=== PATIENT | female | born 1985 | race Caucasian/White ===

== ENCOUNTER 2016-10-04 21:12 | Inpatient (IN) | payer BC ==
[~2016-10-04] VITALS: Ht 182.9 cm; Wt 95.5 kg
[2016-10-04] VITALS (13 sets, daily range): BP systolic 93–127; BP diastolic 53–80; PULSE 72–96; TEMP 97.9
[2016-10-04] MEDS ORDERED: PRILOTC (21:35)
[2016-10-04] MEDS ORDERED: PRENATAL1 TA7 PO (21:36)
[2016-10-04] MEDS ORDERED: MOTRIN 800800 MG/TAB PO (21:50)
[2016-10-04] MEDS ORDERED: PERCOCET 325 MG1 TA2 PO (21:50)
[2016-10-04 22:02] LABS: BASO # 0.1 (0.0-0.2); BASO % 0.4 % (0.0-2.0); EOS % 0.2 % (0-4.0); GRAN # 10.5 (1.4-6.5); GRAN % 78.7 % (42.2-75.2); LYMPH # 1.9 (1.2-3.4); MEAN CELL VOLUME 86 fl (80.0-100.0); MEAN CORPUSCULAR HGB CONC 34 g/dl (33.0-37.0); MEAN PLATELET VOLUME 9.6 fl (7.4-10.4); MONO # 0.8 (0.1-0.6); MONO % 6.2 % (1.7-9.3); PLATELET COUNT 165 K/mm3 (130-400); RED BLOOD COUNT 3.91 M/mm3 (4.10-5.30); REDCELL DISTRIBUTION WIDTH-CV 13.7 % (11.5-14.5); WHITE BLOOD COUNT 13.3 K/mm3 (4.8-10.8)
[2016-10-04 22:06] LABS: HEMATOCRIT 33.7 % (37.0-47.0); HEMOGLOBIN 11.4 g/dl (12.5-16.0); MEAN CORPUSCULAR HEMOGLOBIN 29 pg (27.0-31.0)
[2016-10-05] VITALS (10 sets, daily range): BP systolic 106–132; BP diastolic 65–84; PULSE 49–95; TEMP 97.8–98.8
[2016-10-06 08:06] VITALS: BP 115/74; PULSE 85; TEMP 98.3
[2016-10-06 16:45] VITALS: BP 120/84; PULSE 77; TEMP 97.8
[2016-10-06 19:30] VITALS: BP 122/86; PULSE 78; TEMP 98.7
== END 2016-10-06 19:40 | disposition home or self-care (01) | DRG 775 ==
LOC: LDRO 21:12 → LDR 23:29 → OB 23:29
PROVIDERS: Obstetrics & Gynecology
PROC: 10E0XZZ Delivery of Products of Conception, External Approach (ICD-10-PCS; principal; 2016-10-04)
PROC: 0HQ9XZZ Repair Perineum Skin, External Approach (ICD-10-PCS; 2016-10-04)
DX: O48.0 Post-term pregnancy (principal); O99.824 Streptococcus B carrier state complicating childbirth; O70.0 First degree perineal laceration during delivery; Z3A.40 40 weeks gestation of pregnancy; Z37.0 Single live birth
CPT/HCPCS: J2540; J2590; J2795; J7120